=== PATIENT | female | born 1985 | race Hispanic/Latino ===

== ENCOUNTER 2018-05-20 02:23 | Emergency (ER) | payer OTHER ==
[2018-05-20] MEDS ORDERED: DiphenhydrAMINE 50 mg/ml Inj ONE (03:47)
--- NOTE | 2018-05-20 03:55 | ED PDOC ---
HPI: Allergic Reaction Time Seen by Provider: 05/20/18 03:24 Chief Complaint (Nursing): Allergic Reaction Chief Complaint (Provider): allergic reaction History Per: Patient History/Exam Limitations: no limitations Onset/Duration Of Symptoms: Days (x1) Additional Complaint(s): Allison Hodgson is a 32 year old female, with no significant past medical history , who presents to the emergency department for evaluation of a pruritic lesions to upper extremities onset for x 1day. Patient took Benadryl earlier today but states pruritic rash has spread more and is more diffused to trunk, neck and both lower extremities. Patient's eyelids are swollen but denies any trouble swallowing or shortness of breath. 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 Patient reports she was evaluated last week for possible PID and herpes infection. She denies any other medical complaints. PMD: None provided. Past Medical History Reviewed: Historical Data, Nursing Documentation, Vital Signs Vital Signs: Last Vital Signs Temp 98.7 F 05/20/18 02:43 Pulse 66 05/20/18 02:43 Resp 18 05/20/18 02:43 BP 128/89 05/20/18 02:43 Pulse Ox 100 05/20/18 02:43 - Medical History PMH: No Chronic Diseases - Surgical History Surgical History: No Surg Hx - Family History Family History: States: No Known Family Hx - Social History Current smoker - smoking cessation education provided: No Alcohol: None Drugs: Denies - Home Medications Home Medications: Ambulatory Orders Medication Instructions Recorded Cetirizine HCl [Zyrtec] 10 mg PO QAM #7 capsule 05/20/18 Famotidine [Pepcid] 20 mg PO Q12 #14 tab 05/20/18 Methylprednisolone [Medrol Dosepak] 4 mg PO ASDIR #1 pkg 05/20/18 levoFLOXacin [Levaquin] 500 mg PO DAILY #10 tab 05/20/18 - Allergies Allergies/Adverse Reactions: Allergies Allergy/AdvReac Type Severity Reaction Status Date / Time No Known Allergies Allergy Verified 05/20/18 03:01 Review of Systems ROS Statement: Except As Marked, All Systems Reviewed And Found Negative Eyes: Positive for: Eyelid Inflammation ENT: Negative for: Throat Swelling Respiratory: Negative for: Shortness of Breath Skin: Positive for: Rash (pruritic rasht to upper and lower extremities, neck and trunk) Physical Exam - Reviewed Nursing Documentation Reviewed: Yes Vital Signs Reviewed: Yes - Physical Exam Appears: Positive for: Non-toxic, No Acute Distress Head Exam: Positive for: ATRAUMATIC, NORMAL INSPECTION, NORMOCEPHALIC Skin: Positive for: Normal Color, Warm, Dry, Rash (diffused urticarial rash) Eye Exam: Positive for: EOMI, PERRL, Other (b/l eyelid swelling) Neck: Positive for: Painless ROM Cardiovascular/Chest: Positive for: Regular Rate, Rhythm. Negative for: Murmur Respiratory: Positive for: Normal Breath Sounds, Respiratory Distress Gastrointestinal/Abdominal: Positive for: Normal Exam, Soft. Negative for: Tenderness Back: Positive for: Normal Inspection Extremity: Positive for: Normal ROM (all extremities). Negative for: Deformity , Swelling Neurologic/Psych: Positive for: Alert, Oriented - ECG O2 Sat by Pulse Oximetry: 100 (RA) Pulse Ox Interpretation: Normal Disposition - Clinical Impression Clinical Impression: Allergic reaction, UTI (urinary tract infection) - Disposition Disposition: Routine/Home Disposition Time: 05:20 Condition: STABLE Prescriptions: Cetirizine HCl [Zyrtec] 10 mg PO QAM #7 capsule Famotidine [Pepcid] 20 mg PO Q12 #14 tab levoFLOXacin [Levaquin] 500 mg PO DAILY #10 tab Methylprednisolone [Medrol Dosepak] 4 mg PO ASDIR #1 pkg Instructions: Urinary Tract Infections in Adults, Allergy Skin Testing Forms: Knip (Syriac) Medical Decision Making Medical Decision Making: Time: 03:24 Initial Impression: 32 y/o female with allergic reaction Initial Plan: --Urine dipstick --Urine --Benadryl 50 mg IV --Pepcid 40 mg IV --SOLU-medrol 125 mg IVP --Sodium Chloride 1,000 ml IV 1,000 mls/hr --Urinalysis --Reevaluation 05:20 -UA indicative of UTI. IV Rocephin given. Of note patient states she was recently diagnosed with UTI but stopped taking antibiotics after x2 days. -Patient reports improvement of symptoms and is medically stable for discharge. Diagnosis allergic reaction and UTI. ----- Scribe Attestation: Documented by Freddie Deleon, acting as a scribe for Obey La MD. Provider Scribe Attestation: All medical record entries made by the Scribe were at my direction and personally dictated by me. I have reviewed the chart and agree that the record accurately reflects my personal performance of the history, physical exam, medical decision making, and the department course for this patient. I have also personally directed, reviewed, and agree with the discharge instructions and disposition.
[2018-05-20] MEDS: DiphenhydrAMINE 50 mg/ml Inj IV STA (03:59)
[2018-05-20] MEDS: Sodium Chloride 0.9% 1,000 ML IV STA (04:02)
[2018-05-20 04:30] LABS: URINE BACTERIA OCC (<OCC); URINE BILIRUBIN NEGATIVE (NEGATIVE); URINE BLOOD MODERATE (NEGATIVE); URINE CLARITY TURBID (Clear); URINE COLOR YELLOW (YELLOW); URINE GLUCOSE (UA) NEG (Normal); URINE LEUKOCYTE ESTERASE LARGE Leu/uL (Negative); URINE PROTEIN 100 mg/dL (NEGATIVE); URINE UROBILINOGEN 0.2-1.0 mg/dL (0.2-1.0)
[2018-05-20] MEDS ORDERED: cefTRIAXone (Rocephin) 1 gm Inj ONE (04:44)
[2018-05-20 05:55] VITALS: BP 126/69; PULSE 73; RESP 16; TEMP 98.3; O2SAT 99
== END 2018-05-20 05:54 | disposition home or self-care (01) ==
LOC: H.ER 02:23
DX: T78.40XA Allergy, unspecified, initial encounter (principal); N39.0 Urinary tract infection, site not specified
CPT/HCPCS: 81003; 81025; 96374; 99283; J0696; J1200; J2930; J7030